=== PATIENT | female | born 1945 | race Caucasian/White ===

== ENCOUNTER 2016-12-28 09:35 | Emergency (ER) | payer MEDICARE, MEDICAID ==
[2016-12-28 09:38] VITALS: BP 150/70; PULSE 76; TEMP 97.5
[2016-12-28 09:40] VITALS: BMI 23.3
--- NOTE | 2016-12-28 10:42 | DIRPT ---
CLINICAL DATA: Left hip pain after fall. EXAM: LEFT HIP (WITH PELVIS) 2-3 VIEWS COMPARISON: Plain films of the pelvis dated 08/30/2014. FINDINGS: Osseous structures of the pelvis appear intact and normally aligned throughout. Left femoral head is normally positioned relative to the acetabulum. No fracture line or displaced fracture fragment seen within the left femoral head or neck. Surgical changes noted within the right hemipelvis, stable. Soft tissues about the pelvis and left hip were otherwise unremarkable. IMPRESSION: No acute findings. No osseous fracture or dislocation seen. Electronically Signed By: Malachi Guido M.D. On: 12/28/2016 10:40
--- NOTE | 2016-12-28 11:30 | EDPRACDOC ---
ED Hip Problem HPI - General Information Chief Complaint: Hip Pain Stated Complaint: FALL/LEFT HIP PAIN Time Seen by Provider: 12/28/16 11:24 Mode of Arrival: Car Home Medications: Home Medications Clopidogrel Bisulfate [Plavix] 75 mg PO DAILY 12/14/12 Esomeprazole Mag Trihydrate [Nexium] 40 mg PO DAILY 12/14/12 Lisinopril [Prinivil] 40 mg PO DAILY 12/14/12 Niacin [Niaspan] 1,000 mg PO QHS 12/14/12 [id number] Ethyl Esters [Lovaza (Wallace-3 Acid Ethyl Esters)] 2,000 mg PO BID 07/05/13 Gabapentin [Neurontin] 300 mg PO TID 09/18/16 Liraglutide [Victoza 18 mg/3 ml Pen] 1.2 mg SQ DAILY@0800 09/18/16 Oxycodone Immediate Release [Oxy-Ir] 5 mg PO Q6H PRN #15 tab 12/28/16 Allergies/Adverse Reactions: Allergies Allergy/AdvReac Type Severity Reaction Status Date / Time No Known Allergies Allergy Verified 01/29/15 08:55 - History of Present Illness Onset: yesterday HPI: PT FELL GOING DOWN STEPS YESTERDAY COMPLAINS OF PAIN IN THE BACK OF HER LEFT HIP SINCE, IS ABLE TO WALK BUT WITH PAIN, PAIN IS SHARP, WORSE WITH MOVEMENT AND WALKING, PT HAS NOT TAKEN ANY MEDICATIONS FOR HER PAIN, STATES SHE CAN NOT TAKE TYLENOL OR MOTRIN DUE TO "MY DIABETES". Hip Problem Location: Reports: Left, Lateral, Posterior Mechanism: Reports: Blunt Trauma Circumstances: Reports: Fall Relevant History: Reports: None Tetanus Up To Date?: Yes Able to Bear Weight: Fully Pain Severity: Severe Associated Signs & Symptoms: Denies: Fever, Abrasion, Laceration, Thigh Pain, Knee Pain, Back Pain ED Past Medical History - History Reviewed Yes Nurses notes reviewed and agree except as marked - Patient Medical History Cardiac History: Reports: Hypertension, Congestive Heart Failure, Heart Attack ( X 3), Cardiac Catheterization Respiratory History: Reports: COPD. Denies: Pneumonia GI/ History: Reports: Renal Disease (STAGE II), Pancreatitis Musculoskeletal History: Reports: Arthritis (FINGERS) Psychological History: Denies: Depression Systemic History: Reports: Diabetes (137 THIS AM). Denies: Cancer Surgical History: Reports: Cholecystectomy, Angioplasty (STENTS X7), Cardiac Catheterization - Family Medical History Reports: Hypertension (BROTHERS, SISTERS), Diabetes (MOTHER), Cancer (BROTHERS, SISTERS, MOTHER, FATHER), Cardiac Disorders (BROTHERS, SISTERS). Denies: Stroke - Social Medical History Smoking Status: Heavy tobacco smoker (5 or more cigarettes/day or daily pipe/ cigar) ETOH: None Substance Abuse: None EDM Review of Systems - Review of Systems Constitutional: negative: Chills, Fever Gastrointestinal: negative: Nausea, Vomiting Neurological: negative: Dizziness, Headache, Numbness, Weakness Musculoskeletal: Hip Integumentary: No Symptoms Reported - Physical Exam Constitutional: Alert (Awake), No apparent distress Oriented to: Time, Person, Place Last recorded Vital Signs: Last Vital Signs Temp 97.5 F 12/28/16 09:36 Pulse 76 12/28/16 09:36 Resp 18 12/28/16 09:36 BP 150/70 12/28/16 09:36 Pulse Ox 96 12/28/16 09:36 Oxygen Pulse Oxygen Saturation 96 O2 Device Oxygen Flow Rate Fraction of Inspired Oxygen ( FIO2) - HEENT Head: Normal ( normocephalic) - Musculoskeletal Back: negative: Thoracic TTP, Lumbar TTP - Integumentary Skin: Normal, Warm, Dry Lymphatics: Normal (no adenopathy) - Neurologic Memory Impaired: Normal Motor Function: Normal (Normal tone, Pulses 2+ No cyanosis or edema, FROM) Cranial Nerve: Normal (CN II-X11 intact sensation, strength 5/5) Cerebellar: Normal Mood Description: Normal Perception: Normal ED Hip Problem Physical Exam - Musculoskeletal Hip: Moderate tenderness. negative: Swelling, Limited ROM, Deformity Hip Deformity: Normal Pelvis: Normal Thigh: Normal Back: Normal Distal Function/Circulation: Normal, Capillary Refill. negative: Motor Deficit , Pulse Deficit, Sensory Deficit - Differential Diagnosis Contusion, Dislocation, Hip fracture, Pelvis fracture - Diagnostic Imaging LEFT HIP Image interpreted by: Radiologist LEFT HIP (WITH PELVIS) 2-3 VIEWS COMPARISON: Plain films of the pelvis dated 08/30/2014. FINDINGS: Osseous structures of the pelvis appear intact and normally aligned throughout. Left femoral head is normally positioned relative to the acetabulum. No fracture line or displaced fracture fragment seen within the left femoral head or neck. Surgical changes noted within the right hemipelvis, stable. Soft tissues about the pelvis and left hip were otherwise unremarkable. IMPRESSION: No acute findings. No osseous fracture or dislocation seen. Decision Time to Discharge: 11:30 - Departure Disposition: Home Condition: Stable Final Diagnosis: Left hip pain Accidental fall Qualifiers: Encounter type: initial encounter Qualified Code(s): W19.XXXA - Unspecified fall, initial encounter Instructions: Fall Prevention for Older Adults (ED) Education/Counseling Given To: Patient, Family Member Education/Counseling Given Regarding: Diagnosis, Treatment, Prognosis, Follow Up Referrals: King Song MD [Primary Care Provider] - One Week Prescriptions: New Oxycodone Immediate Release [Oxy-Ir] 5 mg PO Q6H PRN #15 tab PRN Reason: Pain Continue Clopidogrel Bisulfate [Plavix] 75 mg PO DAILY Niacin [Niaspan] 1,000 mg PO QHS Esomeprazole Mag Trihydrate [Nexium] 40 mg PO DAILY Lisinopril [Prinivil] 40 mg PO DAILY [id number] Ethyl Esters [Lovaza (Wallace-3 Acid Ethyl Esters)] 2,000 mg PO BID Liraglutide [Victoza 18 mg/3 ml Pen] 1.2 mg SQ DAILY@0800 Gabapentin [Neurontin] 300 mg PO TID Discontinued Azithromycin [Zithromax] 0 mg PO DAILY #6 tablet Hydrocodone Bit/Homatropine [Hycodan Syrup] 5 ml PO Q6 PRN #120 syrup PRN Reason: Cough Prednisone [Deltasone, Orasone] 40 mg PO DAILY 5 Days Additional Instructions: APPLY WARM COMPRESSES TO AREAS OF SORENESS 20 MINS AT A TIME 4 - 5 TIMES DAILY NEEDED FOR PAIN.
[2016-12-28] MEDS ORDERED: OXYCODONE HCL 5 MG TABLET PO ONE (11:32)
== END 2016-12-28 11:43 | disposition home or self-care (01) ==
LOC: ED 09:35 → EDMC 11:43
DX: M25.552 Pain in left hip (principal); W19.XXXA Unspecified fall, initial encounter; Y93.9 Activity, unspecified
CPT/HCPCS: 73502; 99283; A9270; J3490